=== PATIENT | female | born 1990 | race Caucasian/White ===

== ENCOUNTER 2017-12-07 05:57 | Day surgery (SDC) | payer OTHER ==
[2017-12-07] MEDS ORDERED: LIDOCAINE 1% (MPF) 30 ML INJ (06:52)
[2017-12-07] MEDS ORDERED: BUPIVACAINE 0.25%/EPI (SDV) 30 ML INJ (06:52)
[2017-12-07] MEDS ORDERED: PROPOFOL 20 ML (07:02)
[2017-12-07] MEDS ORDERED: CEFAZOLIN 1 GM INJ (07:03)
[2017-12-07] MEDS ORDERED: DEXAMETHASONE 4 MG/ML 1 ML INJ (07:03)
[2017-12-07] MEDS ORDERED: ROCURONIUM 50 MG INJ (07:03)
[2017-12-07] MEDS ORDERED: LIDOCAINE 2% (SDV) 5 ML INJ (07:03)
[2017-12-07] MEDS ORDERED: SUGAMMADEX SODIUM 200 MG/2 ML VIAL IV (07:03)
[2017-12-07] MEDS ORDERED: FENTAnyl 50 MCG/ML VIAL (07:04)
[2017-12-07] MEDS ORDERED: METOCLOPRAMIDE 10 MG INJ (07:04)
[2017-12-07] MEDS ORDERED: ONDANSETRON 4 MG INJ (08:05)
[2017-12-07] MEDS ORDERED: ACETAMINOPHEN 325 MG TAB PO (08:30)
[2017-12-07] MEDS: FENTAnyl 50 MCG/ML VIAL IV (08:56)
[2017-12-07] MEDS ORDERED: KETOROLAC 30 MG INJ IV (09:00)
[2017-12-07] MEDS ORDERED: HYDROmorphONE (0.2 MG/ML) 10ML SYG IV ×2 (09:00)
[2017-12-07] MEDS ORDERED: ONDANSETRON 4 MG INJ IV (09:00)
== END 2017-12-07 10:10 | disposition home or self-care (01) ==
LOC: SDS 05:57
DX: Z30.2 Encounter for sterilization (principal); Z64.1 Problems related to multiparity
CPT/HCPCS: 58670; 86850; 86900; 86901